=== PATIENT | male | born 2000 | race Asian ===

== ENCOUNTER 2018-04-01 12:28 | Emergency (ER) | payer OTHER ==
[~2018-04-01] VITALS: Ht 208.3 cm; Wt 93.0 kg
[2018-04-01 12:36] VITALS: TEMP 98.9
[2018-04-01 15:14] LABS: PLATELET COUNT 157 K/uL (142-355)
[2018-04-01 16:53] VITALS: BP 132/64
== END 2018-04-01 16:53 | disposition home or self-care (01) ==
LOC: ED 12:28
PROVIDERS: Family Medicine
DX: M25.562 Pain in left knee (principal)
CPT/HCPCS: 36415; 80053; 84550; 85027; 99283

== ENCOUNTER 2018-04-18 14:16 | Emergency (ER) | payer OTHER ==
[~2018-04-18] VITALS: Ht 190.5 cm; Wt 93.0 kg
[2018-04-18 14:22] VITALS: TEMP 98
[2018-04-18 16:23] VITALS: BP 110/60
== END 2018-04-18 16:23 | disposition home or self-care (01) ==
LOC: ED 14:16
DX: S06.0X0A Concussion without loss of consciousness, initial encounter (principal); V43.52XA Car driver injured in collision with other type car in traffic accident, initial encounter; Y93.89 Activity, other specified; Y92.89 Other specified places as the place of occurrence of the external cause
CPT/HCPCS: 99283